=== PATIENT | female | born 1980 | race Two or more races ===

== ENCOUNTER 2017-08-06 | Emergency (ER) | payer OTHER ==
[~2017-08-06] VITALS: Ht 165.1 cm; Wt 83.0 kg
[2017-08-06 00:14] VITALS: BP 118/79
== END 2017-08-06 00:41 | disposition left against medical advice (07) ==
LOC: ER 00:02
DX: O26.893 Other specified pregnancy related conditions, third trimester (principal); R11.10 Vomiting, unspecified; R51 Headache; Z53.21 Procedure and treatment not carried out due to patient leaving prior to being seen by health care provider; Z3A.36 36 weeks gestation of pregnancy